=== PATIENT | female | born 1970 | race Caucasian/White ===

== ENCOUNTER 2022-03-23 05:01 | Observation (INO) ==
--- NOTE | 2022-02-15 11:00 | PAT Medication Instructions ---
Medication Instructions Date of Service February 15, 2022 Home Medications Medication Instructions Recorded Jeronimo Levine #1 ea 12/10/21 celecoxib 200 mg capsule (Celebrex) 200 mg PO QAM cholecalciferol (vitamin D3) 25 mcg (1,000 unit) capsule 25 mcg PO QAM duloxetine 60 mg capsule,delayed release (Cymbalta) 60 mg PO QAM levothyroxine 175 mcg tablet (Levoxyl) 175 mcg PO QAM metformin 500 mg tablet 500 mg PO QAM rosuvastatin 5 mg tablet (Crestor) 5 mg PO QAM dulaglutide 0.75 mg/0.5 mL subcutaneous pen injector (Trulicity) 0.75 mg SUBCUT UD Continue as directed dulaglutide 0.75 mg/0.5 mL subcutaneous pen injector (Trulicity) 0.75 mg SUBCUT UD ASK your surgeon for instructions celecoxib 200 mg capsule (Celebrex) 200 mg PO QAM DO NOT take the morning of surgery cholecalciferol (vitamin D3) 25 mcg (1,000 unit) capsule 25 mcg PO QAM metformin 500 mg tablet 500 mg PO QAM Take morning of surgery With a small sip of water, OTHERWISE NOTHING TO EAT OR DRINK AFTER MIDNIGHT: duloxetine 60 mg capsule,delayed release (Cymbalta) 60 mg PO QAM levothyroxine 175 mcg tablet (Levoxyl) 175 mcg PO QAM rosuvastatin 5 mg tablet (Crestor) 5 mg PO QAM Other Notes If you have any questions please call us at [phone] or [phone] or [phone] or [phone]
--- NOTE | 2022-02-17 09:48 | Anesthesiology Consultation ---
Date of Service February 17, 2022 Assessment & Plan (1) Encounter for pre-operative examination: - check urine test STAT am DOS. - COVID screening: Per assessment on 02/17/2022: Travel screen negative, no known COVID-19 positive contacts or current COVID-19 related symptoms in past 2 weeks. Pt vaccinated. Surgeon arranging preop COVID testing, scheduled 03/19/2022. Awaiting results. Chart Review Chart Review: Acceptable Risk for Surgery and Patient seen in Pre Admission Testing Teaching & Discussion Pre-Anesthesia Teaching/Discussion Notes: Instructed NPO after midnight before surgery, except medications with 15 cc of water. Medication instructions provided according to the PAT guidelines. History Surgery Operation Date: 03/23/22 08:50 Proposed Procedures p Left Total Hip Arthroplasty - Tommy Watt MD Height/Weight Height: 5 ft 1 in Weight: 140.1 kg Allergies Allergy/AdvReac Type Severity Reaction Status Date / Time No Known Allergies Allergy Verified 02/15/22 09:43 Medications Home Medications Medication Instructions Recorded Confirmed Last Taken Wheeled Walker #1 ea 12/10/21 01/25/22 Unknown celecoxib 200 mg capsule (Celebrex) 200 mg PO QAM 12/10/21 02/15/22 02/08/22 06:15 cholecalciferol (vitamin D3) 25 25 mcg PO QAM 12/10/21 02/15/22 02/07/22 mcg (1,000 unit) capsule duloxetine 60 mg capsule,delayed 60 mg PO QAM 12/10/21 02/15/22 02/07/22 release (Cymbalta) levothyroxine 175 mcg tablet 175 mcg PO QAM 12/10/21 02/15/22 02/08/22 06:15 (Levoxyl) metformin 500 mg tablet 500 mg PO QAM 12/10/21 02/15/22 02/07/22 rosuvastatin 5 mg tablet (Crestor) 5 mg PO QAM 12/10/21 02/15/22 02/07/22 dulaglutide 0.75 mg/0.5 mL 0.75 mg SUBCUT UD 01/19/22 02/15/22 02/07/22 subcutaneous pen injector (Trulicity) Past Medical History Medical History Depression High cholesterol Hypothyroidism Morbid obesity pt states "takes metformin and tulicity for weight loss" Patient denies h/o stroke, seizures, heart attack, heart failure, DM, HTN, blood clots or blood transfusions. Exercise / Class Metabolic Activity III < 4 Walking/Shop/Light housework (denies CP or SOB) Past Surgical History Surgical History History of left cataract surgery Past Anesthesia History No Hx of Anesthesia Complications and No Family Hx of Anesthesia Complications History of PONV No Hx of PONV and No Hx of Motion Sickness Social History Smoking Status: Never smoker Do You Dip or Chew Tobacco: No Hx Alcohol Use: No Hx Substance Use: No substance use type: does not use Review of Systems Snoring in bed, states not currently ongoing sleeping in recliner. Patient denies chest pain, shortness of breath, dyspnea on exertion, reflux, fever, chills, cough, wheezing, or palpitations. Physical Exam Vital Signs Vitals BP 122/68 P 79 TEMP 98.7 SP02 97% on RA RESP 17 Physical Full cervical extension range of motion without pain TMD 3.5 finger breaths Mallampati Score 3 Dentition: intact, denies missing, chipped or loose teeth, caps/crowns, implants or bridges Lungs: normal respiratory effort. Clear throughout to auscultation, no adventitious breath sounds Cardiac: regular rate and rhythm, no murmurs noted Carotid arteries: negative bruit bilat Lab Results Anesthesia Preop Results Results Anesthesia Widget: WBC 4.50 K/uL (4.8-10.8) L 02/17/22 Hgb 14.1 g/dL (12.0-16.0) 02/17/22 Hct 42.7 % (37-47) 02/17/22 Plt 274 K/uL (130-400) 02/17/22 Na 138 mmol/L (136-145) 02/17/22 K 4.1 mmol/L (3.5-5.1) 02/17/22 Cl 106 mmol/L (98-107) 02/17/22 CO2 25 mmol/L (21-32) 02/17/22 BUN 14 mg/dl (6-23) 02/17/22 Creat 0.61 mg/dl (0.6-1.2) 02/17/22 Glucose Level 88 mg/dl (70-99(Fasting)) 02/17/22 POC Glucose 82 mg/dl (70-99) 02/08/22 PT 10.3 Seconds (9.0-12.0) 02/17/22 PTT 27.8 Seconds (21.0-31.0) 02/17/22 INR 1.0 (0.9-1.1) 02/17/22 HA1c 5.5 % (4.5-5.6) 02/17/22 Blood Type A Positive 02/17/22 Antibody Screen NEGATIVE 02/17/22 Testing Electrocardiogram Date: 02/17/22 NSR, rate 82 bpm Chest X-Ray Date: 02/17/22 No lines and tubes are seen. The cardiomediastinal silhouette is normal. The lungs are clear. No evidence of pleural effusion or pneumothorax. IMPRESSION: No acute chest disease.
--- NOTE | 2022-03-20 18:33 | History and Physical Report ---
CHIEF COMPLAINT: Left hip pain. HISTORY OF PRESENT ILLNESS: The patient is a 51-year-old female who presents for surgical treatment of her left hip. She has a 2-year history of gradually increasing left hip pain and discomfort that has gotten worse over time. She has groin pain, thigh pain radiates down to her knee. She was seen by Dr. Lau at [facility] who told her she needs a hip replacement, but she was too heavy. They wanted her BMI below 40. She has been trying to do it. She takes Celebrex and fluoxetine. She lost about 12 pounds, but having trouble losing any more than that. She is debilitated by her pain. 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 She limps more as the day goes on. She has been heavy all her life and would like her hip fixed. PAST MEDICAL HISTORY: 1. Hypothyroidism. 2. Morbid obesity, BMI of 59. 3. Elevated cholesterol. PAST SURGICAL HISTORY: None. ALLERGIES: None. CURRENT MEDICATIONS: 1. Celebrex. 2. Fluoxetine. SOCIAL HISTORY: Significant for a 51-year-old female. She is . 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 Rare alcohol intake. Two children. Does not smoke. FAMILY HISTORY: Noncontributory. REVIEW OF SYSTEMS: Significant for multiple musculoskeletal aches and pains. No fevers. Her weight loss is about 10-12 pounds over the past several months. She is morbidly obese. No DVT or PE history. PHYSICAL EXAMINATION: GENERAL: Shows a pleasant, obese, middle-aged female. Looks to be in reasonably good health. HEENT: Benign. NECK: Supple. No lymphadenopathy. LUNGS: Clear to auscultation. HEART: Regular rate and rhythm. ABDOMEN: Soft, nontender, nondistended. EXTREMITIES: Grossly neurovascularly intact except as follows: Examination of the left hip revealed patient walks with a significant limp. Leg lengths were pretty equal. She may be 0.5-cm short on the left side compared to right. She has marked pain with any type of hip motion. Internal rotation to - 10. Negative straight leg raise. She is neurologically intact. X-RAYS: Two views of the left hip from today are reviewed. It shows advanced left hip DJD. She has got complete loss of her superior joint space. She has got cystic changes of the femoral head and subluxation of the femoral head outside the acetabulum. Cystic change on both sides of the joint. ASSESSMENT: A 51-year-old morbidly obese female with advanced left hip DJD. She has failed conservative measures. She has lost a little bit of weight, but having difficulty losing anymore. She has been heavier all her life. It is unrealistic to think that she is going to get her BMI significant lower. PLAN: We talked about treatment. She is hoping to have her hip replaced. I did talk about increased risk with her obesity, particularly with respect to infection, blood clots, and need for revision. She understands and desires strongly to proceed. Additional risks include, but not limited to DVT, PE, , infection, neurological or vascular injury, bleeding problem, pain, limited range of motion, stiffness, need for further surgery in the future, etc. The patient understands and desires to proceed. Informed consent was obtained. Follow up in office two weeks postop. Job ID: [id number] [facility]ITALAníbal
[2022-03-23] MEDS ORDERED: LR 500ML BOLUS, THEN 15ML/HR IV SCH (06:00)
[2022-03-23] MEDS ORDERED: METOCLOPRAMIDE HCL 10 MG TABLET PO SCH (06:00)
[2022-03-23] MEDS ORDERED: FAMOTIDINE 20 MG TAB PO SCH (06:00)
[2022-03-23] MEDS ORDERED: Scopolamine 1 MG TDSY TD SCH (06:00)
[2022-03-23] MEDS ORDERED: CeleBREX 200 MG CAP PO SCH (06:00)
[2022-03-23] MEDS ORDERED: LR 60ML/HR IV SCH (06:00)
[2022-03-23] MEDS ORDERED: TRANEXAMIC ACID 1,000 MG **IV Pre-op IV SCH (06:00)
[2022-03-23] MEDS ORDERED: ACETAMINOPHEN 500 MG TAB PO SCH (06:00)
[2022-03-23] MEDS ORDERED: BUPIVACAINE 0.5 % 5 MG/1 ML PF 10ML VIAL ONE (06:23)
[2022-03-23] MEDS ORDERED: fentaNYL citrate 100 MCG/2 ML VIAL ONE (06:29)
[2022-03-23] MEDS ORDERED: MIDAZOLAM HCL 1 MG/ML 2ML VIAL ONE (06:29)
[2022-03-23] MEDS ORDERED: PROPOFOL IV EMULSION 10 MG/ML 20 ML VIAL IV ONE ×3 (06:29→09:03)
[2022-03-23] MEDS ORDERED: MoRPHine SULFATE PF 1 MG/ML 10 ML AMP/VIAL ONE (06:30)
[2022-03-23] MEDS ORDERED: BUPIVACAINE 0.5 % 5 MG/1 ML MPF 30ML VIAL ONE (06:34)
[2022-03-23] MEDS ORDERED: EPINEPHrine INJ 1 MG/ML AMP ONE (06:34)
--- NOTE | 2022-03-23 06:56 | History & Physical Bridge Note ---
Date of Service March 23, 2022 History & Physical Bridge Note I have examined the patient, reviewed the History & Physical and in the interval since the performance of the History & Physical I have noted the following changes of clinical significance: no changes noted
[2022-03-23] MEDS ORDERED: KETAMINE 50 MG/5 ML SYRINGE ONE (07:14)
[2022-03-23] MEDS ORDERED: GLYCOPYRROLATE 0.2 MG/ML VIAL ONE (07:22)
[2022-03-23] MEDS ORDERED: ePHEDrine sulfate 50 MG/ML AMP IV PRN ×2 (07:24→07:25)
[2022-03-23] MEDS ORDERED: ATROPINE SULFATE 0.1 MG/ML 10ML SYR IV PRN (07:24)
[2022-03-23] MEDS ORDERED: PROMETHAZINE HCL 6.25 MG in SODIUM CHLORIDE 0.9% 50 ML IV PRN (07:24)
[2022-03-23] MEDS ORDERED: fentaNYL citrate 100 MCG/2 ML VIAL IV PRN (07:24)
[2022-03-23] MEDS ORDERED: ONDANSETRON INJ 2 MG/ML 2 ML VIAL IV PRN ×3 (07:24→10:20)
[2022-03-23] MEDS ORDERED: MoRPHine SULFATE 2 MG/ML CARP IV PRN (07:25)
[2022-03-23] MEDS ORDERED: NALOXONE HCL 1 MG in SODIUM CHLORIDE 0.9% 1000ML 1,000 ML IV PRN (07:25)
[2022-03-23] MEDS ORDERED: MoRPHine SULFATE PF 1 MG/ML 10 ML AMP/VIAL INT SPINAL ONE (07:25)
[2022-03-23] MEDS ORDERED: MEPERIDINE HCL 25 MG/ML CARP/VIAL IV PRN (07:25)
[2022-03-23] MEDS ORDERED: HYDROmorphone INJ 0.5 MG/0.5 ML SYR IV PRN ×2 (07:25→10:20)
[2022-03-23] MEDS ORDERED: diphenhydrAMINE 50 MG/ML VIAL IV PRN (07:25)
[2022-03-23] MEDS ORDERED: NALOXONE HCL 0.4 MG/1 ML VIAL/CARP IV PRN ×2 (07:25→10:20)
[2022-03-23] MEDS ORDERED: KETOROLAC 30 MG/ML VIAL IV PRN (07:25)
[2022-03-23] MEDS ORDERED: NALBUPHINE HCL INJ 10 MG/ML AMP IV PRN (07:25)
[2022-03-23] MEDS ORDERED: NALOXONE HCL 0.08 MG in SYRINGE 1.8 ML IV PRN (07:25)
[2022-03-23] MEDS ORDERED: LACTATED RINGER'S 500 ML IV PRN (07:25)
[2022-03-23] MEDS ORDERED: NO NARCOTICS OR SEDATIVES SCH (07:30)
[2022-03-23] MEDS ORDERED: DC INTRASPINAL MORPHINE SCH (07:30)
[2022-03-23] MEDS ORDERED: SODIUM CHLORIDE 0.9% 1000ML 1,000 ML IV SCH (07:30)
--- NOTE | 2022-03-23 09:24 | Operative Report ---
PG Post Operative Report Pre & Post Diagnosis Operation Date: 03/23/22 07:00 Pre-Op Diagnosis: Left Hip Advanced Degenerative Joint Disease Post-Op Diagnosis: Left Hip Advanced Degenerative Joint Disease I identified the patient and participated in the time-out.: Yes Procedure Operation Date: 03/23/22 07:00 Actual Procedures p Left Total Hip Arthroplasty--Uncemented(Left) - Tommy Watt MD Surgeon Tommy Watt MD Business Systems Analyst Josue Damian PA-C Estimated Blood Loss 300 Findings Consistent with Post-Op Diagnosis Operative findings revealed a very large soft tissue envelope. She had grade 4 extensive [id number] disease of the femoral head and acetabulum. She had a large hip joint effusion. Fluids 2000 cc Specimens Left femoral head sent for pathology Drains None Anesthesia Type Spinal MAC Complications none Disposition Accompanied Patient To Recovery: Yes Indications Patient is a 51-year-old morbidly obese female with a BMI of 59 who has had a several year history of increasing left hip pain discomfort that is become more debilitating over time. She was actually having to use a cane to get around. She has attempted weight loss without much success. She was debilitated by her disease. X-rays show advanced hip arthritis with collapse of the femoral head and subluxation of the femoral head. She elected proceed with surgical treatment. She was fully aware of the increased risk based on her age, morbid obesity, diabetes and additional comorbidities. Description of Procedure Operative implants consist of: 1 Biomet G7 size 56 mm acetabular shell. 2. Dixie hole wafer mounter. 3. 6.5 cancellous acetabular screws 35 mm length 25 mm length. 4. Highly cross-linked polyethylene liner with a 56 mm outer diameter and 36 mm inner diameter with a ruiz placed inferior and posterior. 5. DePuy Karaya size 12 KLA femoral stem. 6. +5/36 mm ceramic articular ball. The patient was taken to the operating, identified, placed on the operating table supine position protectors were properly padded. IV antibiotics arrived by anesthesia team. A Walton cath was placed in sterile fashion. The patient was then placed in the right lateral decubitus position. An axillary roll was placed. A Stulberg hip positioner was used for positioning. Left hip and leg were then prepped and draped in the usual sterile fashion. A posterior lateral approach to the left hip was then performed through a long curvilinear incision centered over the greater trochanter. Sharp dissection Through subcutaneous tissue and down to the IT band gluteal fascia. She had a very large thick soft tissue envelope. The IT band gluteal fascia incised longitudinally in line with the skin incision. The underlying greater bursa was excised. The piriformis and external rotators along with the posterior hip joint capsule were then released from the posterior aspect of the hip taking great care to protect the sciatic nerve at all times. Hip was internally rotated and dislocated. Femoral neck osteotomy cut was made with a Final Cut about 12 mm above the lesser trochanter. Femoral head was removed and sent for pathology. The femur was retracted anteriorly. Attention drawn the acetabulum. The acetabular was full of soft tissue inferiorly. I spent quite a bit of time cleaning out the acetabulum. The acetabular labrum was excised. The pulmonary fat was excised. Sequential reaming the acetabular was then performed with size 43 and progressing up to 55. We did ream just a little bit with a 56 reamer after I tried to put the cup in but could not get it seated. We still had a little trouble getting tight interference fit so I reamed a little bit more with a 55 reamer to deepen this little bit. I was then able to get a pretty good interference fit with a 56 cup. I fixed with two 6.5 cancellous acetabular screws which did get good purchase. A trial liner was placed. Attention drawn the femur. The proximal femur was entered with a [employer] cutter followed by canal finder. I then broached begin the size 8 and progressing up to 12. Got excellent fit with a 12. We then trialed the hip and the +5 articular ball provide full stability and full extension and external rotation and flexion to 9 degrees internal Tatian over 50 degrees. I did elect to place a ruiz inferior and posterior to maximize her stability in flexion due to her large soft tissue envelope. Leg lengths seem equal. We elect to place these implants. Nupathe all trial i mplants were removed. An apex hole wafer mounter was placed. Highly cross-linked polyethylene liner with a ruiz placed inferior and posterior was impacted in position. A 12 KLA femoral stem was impacted in position. +5/36 mm ceramic articular ball was placed. Hip was located once again found to be stable. Attention drawn toward closing. The wounds irrigated scope soft pulsatile lavage solution. We did inject locally with 60 cc of half percent Marcaine with epinephrine. Posterior capsule and external rotators then repaired through drill holes through the trochanter as a single layer. The IT band gluteal fascia then closed with #1 PDS suture in a running fashion. The subcutaneous tissue was then closed with 2 layers with a deep layer #2 Vicryl suture in the subcutaneous tissues with 2-0 Dexon suture in a buried interrupted fashion. Skin was closed with skin estelita. Leg was then cleaned and dried and a sterile Prevena VAC dressing was applied due to a very large soft tissue envelope. Patient was then placed on the transport table and brought back to the recovery room in stable condition. Patient tolerated the procedure well and there were no complications. Josue Damian, my physician assistant credit manager, was present for the entire procedure. His assistance was essential and required for appropriate patient positioning, prepping and draping, surgical exposure, performing the technical details of the operation, placement the implants, closure of the wound, and placement of the sterile bandage. I attest to the content of the Intraoperative Record and any orders documented therein. Any exceptions are noted below.
--- NOTE | 2022-03-23 09:44 | Anesthesiology Progress Note ---
Date of Service March 23, 2022 Anesthesia Post Procedure Vital Signs Vital Signs: Temp Pulse Pulse Resp BP Pulse Ox O2 Del Method 03/23/22 09:40 36.4 C L 78 20 111/75 97 Room Air 03/23/22 09:30 73 15 113/73 100 Oxymask 03/23/22 09:20 71 15 138/88 100 Oxymask 03/23/22 09:12 36.0 C L 96 H 12 143/69 H 93 Oxymask 03/23/22 05:32 36.6 C 88 20 120/69 96 Room Air O2 Flow Rate 03/23/22 09:40 03/23/22 09:30 3 03/23/22 09:20 6 03/23/22 09:12 6 03/23/22 05:32 Pain Intensity Left Hip: Pain Intensity: 0 Transfer of Care Handoff Completed per policy Notes Mental Status: alert / awake / arousable Patient Amnestic to Procedure: Yes Nausea / Vomiting: adequately controlled Pain: adequately controlled Airway Patency, RR, SpO2: stable & adequate BP & HR: stable & adequate Hydration State: stable & adequate Neuraxial Anesthesia: was administered and sensory block is resolving Anesthetic Complications: no major complications apparent and Pt Satisfied with anesthetic care
--- NOTE | 2022-03-23 10:08 | XRay Report ---
XR hip 1V LT w pelvis CLINICAL HISTORY: IN PACU - A/P PELVIS and LATERAL HIP TECHNIQUE: 2 views of the left hip and single frontal view of the pelvis were obtained. Comparison: Comparison is made to radiographs of the hip 12/10/2021 FINDINGS: Exam is limited by underpenetration. Patient is status post total hip arthroplasty with expected post surgical changes including soft tissue swelling, subcutaneous emphysema, and surgical staple placemen t. No periarticular lucency or hardware fracture is seen. Mild to moderate degenerative changes are s uggested in the right as well. IMPRESSION: Expected postoperative appearance status post placement of total hip arthroplasty. ACT 112: Negative or not required by law. Electronically signed by: Alo Burroughs M.D. 03/23/2022 10:07 AM
[2022-03-23] MEDS ORDERED: METOCLOPRAMIDE HCL INJ 5 MG/ML 2 ML VIAL IV PRN (10:20)
[2022-03-23] MEDS ORDERED: MAGNESIUM HYDROXIDE SUSP 30 ML UDC PO PRN (10:20)
[2022-03-23] MEDS ORDERED: bisacodyL 10 MG SUPP PR PRN (10:20)
[2022-03-23] MEDS ORDERED: PHARMACY GLYCEMIC MGMT CONSULT PRN (10:20)
[2022-03-23] MEDS ORDERED: ALUMINUM/MAGNESIUM SUSP 30 ML UDC PO PRN (10:20)
[2022-03-23] MEDS ORDERED: DEXTROSE 50% 50 ML SYRINGE IV PRN (11:00)
[2022-03-23] MEDS ORDERED: GLUCAGON FOR INJ 1 MG VIAL IM PRN (11:00)
[2022-03-23] MEDS ORDERED: CARBOHYDRATES FOR HYPOGLYCEMIA PO PRN (11:00)
[2022-03-23] MEDS ORDERED: GLUCOSE 10 TAB/TUBE PO PRN (11:00)
[2022-03-23] MEDS ORDERED: GLUCOSE 40% GEL 15 GM TUBE PO PRN (11:00)
[2022-03-23] MEDS: SODIUM CHLORIDE 0.9% 1000ML 1,000 ML IV SCH ×3 (11:25→23:53)
[2022-03-23] MEDS: INSULIN ASPART PER UNIT SC SCH ×3 (12:39→20:43)
--- NOTE | 2022-03-23 14:08 | Pharmacy Report ---
Pharmacy Glycemic Short Note 2 - Date of Service March 23, 2022 - Glycemic Short BSG Results (Last 24 hours): 03/23/22 12:08 POC Glucose 97 OUTPATIENT ANTIDIABETIC REGIMEN: * metformin 1000 mg qAM, Trulicity 0.75 weekly (last taken 03/19) * A1c 5.5 % 02/17/22 ASSESSMENT: * Patient admitted POD #0 Left hip arthroplasty, T2DM diet ordered * Last A1c indicates good control with outpatient regimen, BSG post surgery 97 mg/dL * Will maintain patient on sliding scale with correction factor, will add carb ratio if needed, anticipate starting metformin on 03/25 AM PLAN FOR INPATIENT GLYCEMIC CONTROL: * Hold outpatient oral diabetes medications * Basal insulin * Hold * Bolus insulin * NovoLog per scale ACHS or Q6hrs while NPO * Goal Range: Low 110 mg/dL - High 140 mg/dL * Correction Factor: 30 mg/dL/unit * Nutritional / Prandial insulin per carb ratio of 1 unit per - grams CHO consumed
[2022-03-23] MEDS: ACETAMINOPHEN 500 MG TAB PO SCH ×2 (14:12→22:30)
[2022-03-23] MEDS ORDERED: TRANEXAMIC ACID / 0.7% NACL 1,000 MG/100 ML BAG IV SCH (15:15)
[2022-03-23] MEDS: Scopolamine CHECK PATCH PLACEMENT SCH ×2 (15:27→23:57)
[2022-03-23] MEDS: ceFAZolin 2000MG 2,000 MG/15 ML SYR IV SCH ×2 (16:23→22:30)
[2022-03-23] MEDS: ASCORBIC ACID 500 MG TAB PO SCH (18:01)
[2022-03-23] MEDS: DOCUSATE SODIUM 100 MG CAP PO SCH (20:26)
[2022-03-23] MEDS: ASPIRIN 81 MG ECTAB PO SCH (20:26)
[2022-03-23] MEDS ORDERED: SENNA 8.6 MG TAB PO SCH (21:00)
[2022-03-24] MEDS: ACETAMINOPHEN 500 MG TAB PO SCH ×2 (05:39→13:53)
[2022-03-24 06:14] LABS: Basophils # (auto) 0.03 K/uL (0-0.2); Basophils % (auto) 0.4 %; Eosinophils % (auto) 1.4 %; Hematocrit (blood only) 36.1 % (34.1-44.9); Hemoglobin 11.8 g/dl (12.0-16.0); Immature Granulocytes # (auto) 0.03 K/uL (0.00-0.02); Immature Granulocytes % (auto) 0.4 %; Lymphocytes # (auto) 0.91 K/uL (1.2-3.4); Lymphocytes % (auto) 12.7 %; Mean Corpuscular Hemoglobin 31.1 pg (25.0-34.0); Mean Corpuscular Hgb Conc 32.7 g/dL (32.0-36.0); Mean Platelet Volume 10.4 fL (9.4-12.3); Monocytes # (auto) 0.88 K/uL (0.24-0.82); Monocytes % (auto) 12.3 %; Neutrophils # (auto) 5.22 K/uL (1.4-6.5); Neutrophils % (auto) 72.8 %; Platelet Count 219 K/uL (130-400); RDW Coefficient of Variation 12.3 % (11.5-14.5); White Blood Count 7.17 K/ul (4.8-10.8)
[2022-03-24] MEDS ORDERED: LEVOTHYROXINE SODIUM 175 MCG TABLET PO SCH (06:30)
[2022-03-24 06:35] LABS: BUN Creatinine Ratio 18.2 (10-20); Calcium 7.9 mg/dl (8.5-10.1); Creatinine Clr Calc Pharmacy 138.7 ml/min; Est GFR (African American) 120.2 ml/min; Est GFR (Non-African American) 103.7 ml/min; Potassium 4.1 mmol/L (3.5-5.1)
[2022-03-24] MEDS ORDERED: traMADol HCL 50 MG TABLET PO PRN (07:30)
[2022-03-24] MEDS ORDERED: diphenhydrAMINE Capsule 25 MG CAP PO PRN (07:30)
[2022-03-24] MEDS: INSULIN ASPART PER UNIT SC SCH ×2 (08:51→12:33)
[2022-03-24] MEDS: ASCORBIC ACID 500 MG TAB PO SCH (08:55)
[2022-03-24] MEDS: DOCUSATE SODIUM 100 MG CAP PO SCH (08:56)
[2022-03-24] MEDS: ASPIRIN 81 MG ECTAB PO SCH (08:57)
[2022-03-24] MEDS: Scopolamine CHECK PATCH PLACEMENT SCH (08:58)
[2022-03-24] MEDS ORDERED: DULoxetine HCL 60 MG CAP PO SCH (09:00)
[2022-03-24] MEDS ORDERED: CHOLECALCIFEROL 1,000 UNITS 25 MCG TAB PO SCH (09:00)
[2022-03-24] MEDS ORDERED: MULTIVITAMIN TAB PO SCH (09:00)
[2022-03-24] MEDS ORDERED: ROSUVASTATIN CALCIUM 5 MG TAB PO SCH (09:00)
[2022-03-24] MEDS ORDERED: DOCUSATE SODIUM/SENNA 50/8.6MG TAB PO SCH (09:00)
[2022-03-24] MEDS ORDERED: LANTUS PER UNIT CHARGE SQ ONE (09:15)
[2022-03-24] MEDS ORDERED: KETOROLAC 30 MG/ML VIAL IV SCH (12:00)
--- NOTE | 2022-03-24 14:39 | Progress Notes ---
DATE OF SERVICE: 03/24/2022. SUBJECTIVE: A 51-year-old white female, now postoperative day 1 from a left hip replacement. She is doing quite well. Pain is manageable. Therapy went well. She is anxious and hoping to go home. N o chest pain or shortness of breath. Not feeling dizzy or lightheaded. OBJECTIVE: VITAL SIGNS: Temperature is 36.8. Vital signs are stable. PHYSICAL EXAMINATION: GENERAL: Shows a pleasant middle-aged female. She is sitting up in her bedside chair, looks comfort able. EXTREMITIES: Examination of the left hip reveals the dressing to be clean, dry and intact. Her leg lengths are equal. Hip is located. She is neurologically intact. The Prevena VAC dressing is intac t without problems. LABORATORY DATA: Hemoglobin 11.8. Hematocrit 36.1. Electrolytes are stable. ASSESSMENT: A 51-year-old white female, morbidly obese. Postoperative day 1 from left hip replaceme nt. She is doing quite well. Pain is controlled. She did well in therapy. PLAN: 1. DVT prophylaxis includes thigh-high TEDs, SCDs, and aspirin twice a day. 2. PT, OT, weightbear as tolerated. Left total hip protocol. 3. Pain control, doing okay with current pain regimen. 4. Disposition: Plan to discharge to home with some home health today. Job ID: [id number]
[2022-03-25] MEDS ORDERED: metFORMIN HCL 500 MG TAB PO SCH (08:00)
== END 2022-03-24 14:53 | disposition home health service (06) ==
LOC: 3E 05:01 → ASU 05:01